=== PATIENT | male | born 1935 | race Caucasian/White ===

== ENCOUNTER 2017-06-11 08:29 | Inpatient (IN) | payer MEDICARE, BC, MEDICAID ==
[~2017-06-11] VITALS: Ht 195.6 cm; Wt 102.0 kg
--- NOTE | ~2017-06-11 | ECHO ---
Transthoracic Echocardiography Report (TTE) Demographics Patient Name MITRA GALLEGOS Date of Study 06/11/2017 Patient Number [id number] Visit Number [id number] Date of 1935 Room Number G6202 Gender Male Number Age 82 year(s) Referring Sharmaine Ford Banquet Server Carmen Kraus RVT, Physician Fredis CHAVEZ [facility] Hernan Estrada MD Physician Interpreting [facility] Chief Security Officer Physician Logan Mcneal MD Supervising Ordering [facility] MD/MLP Physician Logan Mcneal MD Nurse Stress [employer] Conclusions Summary Limited echo due to assess EF. The estimated left ventricular ejection fraction is 30-35%. Paradoxical septal motion due to the pacemaker lead . Severely dilated right ventricle. Normal right ventricular systolic performance. The right atrium is severely dilated. Device lead seen in the right atrium. Procedure Type of Study TTE procedure:Echo Limited w/o Contrast. 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 Additional Indications:Possible cath perforation Appropriate Use Criteria: 8 Patient Status: STAT Rhythm: Paced HR: 70 bpm Allergies - Other:(Hydrocodone, Lexapro, lortab). Findings Left Ventricle Paradoxical septal motion due to the pacemaker lead . Right Ventricle Severely dilated right ventricle. Normal right ventricular systolic performance. Right Atrium The right atrium is severely dilated. Device lead seen in the right atrium. Pericardial Effusion Epicardial fat pad noted. Contractility Score LV regional wall motion:(0-Non visualized 1-Normal 2-Hypokinesis 3-Akinesis 4-Dyskinesis 5-Aneurysm) Signature dtt: Estiven Schmid dtd: 06/11/17 0000 Physician Self Edit
--- NOTE | ~2017-06-11 | CATH ---
Cardiac Diagnostic + PCI Report Demographics Patient Name ROSY Jacome Gender Male Date of 1935 Age 82 year(s) Patient Number [id number] Date of Study 06/11/2017 Visit Number [id number] Room Number G6[address] [place] [id number] Ht 195.58 cm Wt 97.6 kg Referring Hernan Estrada MD Primary Physician Physician Performing Efstratiou Secondary Physician Physician Logan Mcneal MD Diagnostic Efstratiou Assisting Physician Physician Logan Mcneal MD Interventional Efstratiou Physician Audio Visual Coordinator Physician Logan Mcneal MD Findings and Conclusions Diagnostic Findings and Conclusion Severe stenosis in distal LAD and mid PDA Diagnostic Recommendations PCI of LAD Interventional Findings and Conclusion Successful PTCA to LAD but unable to stent due to torturousity of vessel. IABP inserted due to hypotension and in LVEF Interventional Recommendations Monitor in ICU in IABP 1:1. Upgrade pacer to BiV. Continue Plavix. Procedure Description The patient was brought to the diagnostic cardiac catheterization-EP laboratory in the fasting, non-sedated state. Informed consent was obtained in the written and verbal form after the risks and benefits were explained. The patient had no further questions and agreed to proceed. The planned puncture-incision site(s) were shaved and prepped with ChloraPrep and draped in the usual sterile manner. Conscious sedation, supplemental oxygen, and pain control medications were delivered by a registered nurse under physician guidance. Surface ECG rhythm, blood pressure measurement, and pulse oximetry were monitored throughout the procedure. Arterial access. The access site was infiltrated with lidocaine. The vessel was entered with the Seldinger technique. A sheath was advanced into the vessel and used for catheter placement. Venous access. The access site was infiltrated with 2% lidocaine. The vessel was entered with the Seldinger technique. A sheath was advanced into the vessel and used for catheter placement. Selective left coronary angiography. A catheter was advanced into the left coronary vessel ostium under Fluoroscopic guidance. Contrast was injected by hand. Images were obtained in multiple projections. Selective right coronary angiography. A catheter was advanced into the right coronary vessel ostium under fluoroscopic guidance. Contrast was injected by hand. Images were obtained in multiple projections. Left heart catheterization. A catheter was advanced across the aortic valve to the left ventricle under fluoroscopic guidance. Resting hemodynamics were obtained. Right heart catheterization. A Bent Darwin catheter was successfully advanced to the right atrium, right ventricle, pulmonary artery, and pulmonary artery wedge position under fluoroscopic guidance. Resting hemodynamics were obtained. Measurements included pressures, arterial and venous oxygen saturation samples, and cardiac output. The Bent was removed without difficulty. Arterial and Venous hemostasis was achieved. The patient was transferred to a regular nursing floor via cart accompanied by a nurse. The patient left the laboratory in stable condition. Diagnostic Cath Status: Elective Interventional Cath Status: Urgent Procedure Procedure Type Diagnostic procedure:Angiography:, Right and Left Heart Cath, Coronary Angios PCI procedure:PTCA:, LAD, Support:, IABP:, Insertion Indications: Shortness of breath w/exertion, CHF and CAD. The procedure was explained in detail to the patient. Risks, complications and alternative treatments were reviewed. Written consent was obtained. Medications Reviewed with Patient prior to Procedure. Angiographic Findings Dominance: Right Cardiac Arteries and Lesion Findings LMCA: Normal (0% Stenosis). LAD: Abnormal.The 1st Diag appears normal. Lesion on Dist LAD: 80% stenosis 12 mm length reduced to 10%. Pre procedure GISEL III flow was noted. Post Procedure GISEL III flow was present. The guidewire cross was successful.The lesion was diagnosed as a high risk lesion.Culprit lesion. Devices used - Whisper Wire .014 x 190. Number of passes: 1. - Emerge Balloon 2.0 x 15. 1 inflation(s) to a max pressure of: 14 mitch. - Promus Premier 2.25 x 12 Stent. 1 inflation(s) - Emerge Balloon 2.25 x 20. 1 inflation(s) to a max pressure of: 6 mitch. LCx: Lesion on Mid CX: 30% stenosis . Lesion on 1st Ob Elen% stenosis . RCA: There is a previous stent on Prox RCA Mid subsection showing wide patency. Lesion on R PDA: 80% stenosis . Lesion on Mid RCA: 30% stenosis . Coronary Tree Procedure Data Procedure Date Date: 06/11/2017Start: 11:17 AMEnd: 01:32 PM Entry Locations - Retrograde Percutaneous access was performed through the Right Radial artery (Primary location). A 6 Fr sheath was inserted. Hemostasis was successfully obtained using an R band. Closure Comments: mamadou closure. 10 ml of air in band. - Antegrade Percutaneous access was performed through the Right Femoral vein. A 6 Fr sheath was inserted. Hemostasis was successfully obtained using Suture. - Retrograde Percutaneous access was performed through the Right Femoral artery. A 6 Fr sheath was inserted. Hemostasis was successfully obtained using Suture. Procedure Medications Order and Administration + + +--------+---------+ !Time !Medication !Dosage !Route ! + + +--------+---------+ !06/11/2017 !Fentanyl !25 mcg !I.V. ! !11:06 AM ! ! ! ! + + +--------+---------+ !06/11/2017 !Fentanyl !25 mcg !I.V. ! !11:14 AM ! ! ! ! + + +--------+---------+ !06/11/2017 !PAE Radial Cocktail: Heparin 5000 units, ! !I.A. ! !11:19 AM !Nitroglycerin 200mcg, Verapamil 3 mg ! ! ! ! !(ACC_3) ! ! ! + + +--------+---------+ !06/11/2017 !Heparin (ACC_3) !3000 !I.V. ! !11:44 AM ! !units !bolus ! + + +--------+---------+ !06/11/2017 !0.9% NaCl !200 ml !I.V. ! !11:56 AM ! ! !bolus ! + + +--------+---------+ !06/11/2017 !Fentanyl !25 mcg !I.V. ! !11:57 AM ! ! ! ! + + +--------+---------+ 06/11/2017 !0.9% NaCl !200 ml !I.V. ! !12:04 PM ! ! !bolus ! + + +--------+---------+ 06/11/2017 !Eliseo-Synephrine (Phenylephrine) !100 mcg !I.V. ! !12:06 PM ! ! !bolus ! + + +--------+---------+ 06/11/2017 !Zofran !4 mg !I.V. ! !12:09 PM ! ! ! ! + + +--------+---------+ !06/11/2017 !Eliseo-Synephrine (Phenylephrine) !100 mcg !I.V. ! !12:28 PM ! ! !bolus ! + + +--------+---------+ !06/11/2017 !0.9% NaCl !200 ml !I.V. ! !12:30 PM ! ! !bolus ! + + +--------+---------+ !06/11/2017 !Nitroglycerin !200 mcg !I.C. ! !12:31 PM ! ! ! ! + + +--------+---------+ !06/11/2017 !Eliseo-Synephrine (Phenylephrine) !100 mcg !I.V. ! !12:32 PM ! ! !bolus ! + + +--------+---------+ !06/11/2017 !Eilseo-Synephrine (Phenylephrine) !100 mcg !I.V. ! !12:34 PM ! ! !bolus ! + + +--------+---------+ !06/11/2017 !Fentanyl !25 mcg !I.V. ! !01:14 PM ! ! ! ! + + +--------+---------+ !06/11/2017 !Compazine !5 mg ! ! !01:14 PM ! ! ! ! + + +--------+---------+ Devices Used - A6 Fr. Balloon Wedge Catheterwas used for:Right heart cath. - A6 Fr. BS JR 4 Diag. Catheterwas used for:Right coronary angiography. - A6 Fr. BS JL 3.5 Diag. Catheterwas used for:Left coronary angiography. - A6 Fr. BS Angled Pigtail Diag. Catheterwas used for:LV Pressures. - A6 Fr. XBLAD 3.5 Guide Catheterwas used for:LAD Intervention.Unable to cannulate the vessel. - A6 Fr. EBU 3.75 Guide Catheterwas used for:LAD Intervention.Unable to cannulate the vessel. - A6 Fr. JL3.5 Guide Catheterwas used for:LAD Intervention.Unable to cannulate the vessel. - A6 Fr. XBLAD 3.5 Guide Catheterwas used for:LAD Intervention. - A6 Fr. Guidliner. Contrast Material - Isovue 67171 ml Fluoroscopy Time: Diagnostic: 32:12 minutes. Total: 32:12 minutes. Fluoroscopy Dose: Diagnostic: 2115 mGy. Total: 2115 mGy. Estimated Blood Loss: 35 ml. IABP: IABP was Inserted after PCI has begun. Additional [facility] PCI Information PCI Indication:PCI for high risk Non-STEMI or unstable angina. Medical History Performed Procedures and Imaging Results - No [facility] stress or imaging studies were performed. Allergies - Other:(Hydrocodone, Lexapro, lortab). Risk Factors The patient risk factors include:prior PCI on 04/23/2016;hypertension, diet-treated diabetes mellitus, last creatinine: 1.2 mg/dl, creatinine clearance: 63.26 ml/min, dyslipidemia and former tobacco use. Admission Data Admission Date: 06/11/2017 Admission Time: 01:47 PM Admit Source: Other Insurance Payors: Medicare. Admission Medications + +------+------+ + + + + !Medication !Dosage!Times !Last !Last !Administered !Comments ! ! ! !Per !Delivery !Delivery ! ! ! ! ! !Day !Date !Time ! ! ! + +------+------+ + + + + !Beta ! ! ! ! !Yes ! ! !Janie ! ! ! ! ! ! ! !(any) ! ! ! ! ! ! ! + +------+------+ + + + + !Statin ! ! ! ! !Yes ! ! !(any) ! ! ! ! ! ! ! + +------+------+ + + + + Clinical Evaluation Leading to Procedure Diagnosed on 06/03/2017 04:00 PM. - The patient's CAD presentation was assessed as: Stable angina. - The patient's anginal syndrome during the past two weeks was assessed as: Class II according to the [place] Cardiovascular Society Classification System (CCS). Anti-anginal medications were prescribed during the past two weeks. The medication is: Beta Blockers. - The patient has been in a state of heart failure within the past two weeks. - The patient's heart failure status was assessed as NYHA Class III, with CHF symptoms of MCLAIN. Snapshots Hemodynamics Condition: Rest O2 Consumption: Estimated: 262.74Heart Rate: 70 bpm Oxygen Saturation +--------+-----+----+ +---+ + !Location!pCO2 !pO2 !% Saturation !Hgb!O2 Content ! +--------+-----+----+ +---+ + !RA ! ! !46.6 ! ! ! +--------+-----+----+ +---+ + !PA ! ! !49 ! ! ! +--------+-----+----+ +---+ + !FA ! ! !91.1 ! ! ! +--------+-----+----+ +---+ + Pressures (mmHg) +-----+ + !Site !Pressure ! +-----+ + !RA !03/11 (4) ! +-----+ + !RV !/ ,4 ! +-----+ + !PCW !04/12 (4) ! +-----+ + !PA !26/03 (12) ! +-----+ + !AO !106/63 (81) ! +-----+ + !AO !101/59 (71) ! +-----+ + !LV !104/3 ,5 ! +-----+ + !AO !79/48 (62) ! +-----+ + !AO !64/44 (54) ! +-----+ + !AO !97/60 (76) ! +-----+ + Cardiac Output +------+ + + + !Method!CO (l/min) !CI (l/min/m2) !SV (ml) ! +------+ + + + !Susan !2.64 !1.1 !37.59 ! +------+ + + + Valve Gradients and Areas + +--------+--------+--------+---------+ + + !Valve !Peak !Mean !Area !Index !Flow !Source ! + +--------+--------+--------+---------+ + + !Aortic !9 !9 !0.91 !0.39 !121.27 !Susan ! + +--------+--------+--------+---------+ + + !Aortic !9 !9 ! ! ! ! ! + +--------+--------+--------+---------+ + + Shunts Oxygen Values O2 Capacity 236.64 O2 Consumption 262.74 Flows (l/min) Qs 2.49 Vascular Resistance (dynes x sec x cm-5) + +-----+-----+----+----+---------+-------+ !CO method !TSVR !SVR !TPVR!PVR !TPVR/TSVR!PVR/SVR! + +-----+-----+----+----+---------+-------+ !Susan !28.85!27.45!4.59!2.95!0.16 !0.11 ! + +-----+-----+----+----+---------+-------+ !Qp or Qs !30.58!29.1 ! ! ! ! ! + +-----+-----+----+----+---------+-------+ Signatures dtt: Estiven Schmid dtd: 06/11/17 1117 Physician Self Edit
--- NOTE | ~2017-06-11 | ECHO ---
Transthoracic Echocardiography Report (TTE) Demographics Patient Name MITRA GALLEGOS Date of Study 06/12/2017 Patient Number [id number] Visit Number [id number] Date of 1935 Room Number G6202 Gender Male Number Age 82 year(s) Referring Sharmaine Ford Telephone Technician Gabriella Whelan, Physician Fredis CHAVEZ RT,RVT,RDCS Physician Interpreting [facility] Ancillary Physician A Supervising Ordering Sharmaine Ford MD/MLP Physician A Nurse Stress Interline Clerk Conclusions Contractility Score Summary Normal Left Ventricular contractility was noted. Summary The estimated left ventricular ejection fraction is 65%. Severe concentric left ventricular hypertrophy. Mild to moderately dilated right ventricle. Normal right ventricular systolic performance. The right atrium is severely dilated. IVC measures 3.5 cm with blunted response to sniffing Device lead seen in the right atrium. Moderate tricuspid regurgitation . Upper normal estimated PA pressure. Procedure Type of Study TTE procedure:2D Echocardiogram, M-Mode, Doppler , Color Doppler. Procedure Date Date: 06/12/2017 Start: 08:14 AM Study Location: Inpatient Portable Technical Quality: Adequate visualization Indications:Chest pain. Additional Indications:Post PTCA Appropriate Use Criteria: 9 Patient Status: Routine HR: 70 bpm BP: 98/54 mmHg Allergies - Other:(Hydrocodone, Lexapro, lortab). M-Mode/2D Measurements LV Diastolic Dimension: 3.59 cm LV Systolic Dimension: 2.39 cm LV Septum Diastolic: 1.43 cm LV Septum Systolic: 2.78 cm LV PW Diastolic: 1.51 cm LV PW Systolic: 2.33 cm Cardiac Output: 4.1 l/min AO Root Dimension: 4 cm RV Diastolic Dimension: 3.44 cm LA Dimension: 3.6 cm EF Estimated: 65 % MV EPSS: 0.2 cm LVOT: 2.3 cm RV Base: 5 cm LVOT VTI: 14.1 cm RV Mid: 5.3 cm LV Stroke volume: 58.55 ml TAPSE: 2 cm Doppler Measurements AV Peak Velocity: 0.81 m/s MV Peak E-Wave: 0.74 m/s AV Peak Gradient: 2.6 mmHg MV Peak A-Wave: 0.46 m/s AV Mean Gradient: 1 mmHg MV E/A Ratio: 1.59 LVOT Peak Velocity: 0.74 m/s MV P1/2t: 52 msec TR Gradient:18.32 mmHg PV Peak Velocity: 0.63 m/s Estimated RAP:10 mmHg PV Peak Gradient: 1.6 mmHg Estimated RVSP: 28 mmHg Estimated PASP: 28.32 mmHg E' Septal Velocity: 0.09 m/s A' Septal Velocity: 0.02 m/s MV E/E' Ratio: 8.5 Findings Left Ventricle Severe concentric left ventricular hypertrophy. Right Ventricle Mild to moderately dilated right ventricle. Normal right ventricular systolic performance. Left Atrium Normal left atrial size. Right Atrium The right atrium is severely dilated. IVC measures 3.5 cm with blunted response to sniffing Device lead seen in the right atrium. Mitral Valve Normal mitral valve structure and function. Aortic Valve The aortic valve is mildly sclerotic. Tricuspid Valve Moderate tricuspid regurgitation . Upper normal estimated PA pressure. Pulmonic Valve Normal pulmonic valve structure and function. Moderate pulmonic valve regurgitation. Pericardial Effusion No evidence of pericardial effusion. Miscellaneous Visualized portions of the aortic root and ascending aorta appear normal in size. Pleural Effusion No evidence of pleural effusion. Contractility Score LV regional wall motion:(0-Non visualized 1-Normal 2-Hypokinesis 3-Akinesis 4-Dyskinesis 5-Aneurysm) Signature dtt: Estiven Schmid dtd: 06/12/17 0814 Physician Self Edit
--- NOTE | ~2017-06-11 | DS ---
PATIENT'S NAME: MITRA GALLEGOS [facility] AGE: 82 Y [address] ROOM: [address] [address] LOCATION: GICU ADMIT DATE: 06/11/2017 Discharge Summary DISCHARGE DATE: 06/13/2017 FAMILY PHYSICIAN: Natalie Becerra MD ATTENDING PHYSICIAN: Liang White DIAGNOSES: 1. Coronary artery disease. 2. Transient cardiogenic shock. 3. Permanent pacemaker. 4. Chronic kidney disease stage 3. 5. Diastolic heart failure. 6. Unable to ambulate. HOSPITAL COURSE: This is a patient with progressive dyspnea on minimal exertion. In the past, he has been evaluated with a CT angiogram for thromboembolic disease, which was negative. He does have an elevated beta natriuretic peptide, so increasing doses of diuretics were tried without success. The patient had a previous stent to the proximal right coronary artery, and was known to have distal stenosis of the left anterior descending and the posterior descending arteries. It was suggested to alleviate his dyspnea and provided more information to perform the right and left heart catheterizations. The patient and his family consented. On the , he had right and left heart catheterizations. There was no significant pulmonary hypertension, although the right heart chambers were dilated. The previous right coronary artery stent was patent. He had 80% stenosis of the distal left anterior descending artery. During the revascularization procedure, the balloon crossed successfully; however, stents would not cross because of the tortuosity. In the process, the patient became unstable and hypotensive. He required the administration of Eliseo-Synephrine aliquots. At that point, the procedure was terminated. There was good flow in the distal left anterior descending artery at the completion of the case. Because the systolic pressures were between 80 and 90 an intra-aortic balloon pump was inserted, which stayed overnight. Immediate echocardiography showed dyskinesis of the septum. The patient required very small amounts of Levophed overnight. The next day, he had minimal elevation of his troponin. He was successfully weaned from the intra-aortic balloon pump, and a repeat echocardiogram showed complete recovery of his left ventricular systolic function. At some point, it was contemplated whether to upgrade his permanent pacemaker to a resynchronization device, but at this point, this will not be necessary. DISCHARGE FOLLOWUP: The patient will be discharged to his skilled nursing to be followed in my clinic in [place]. DISCHARGE MEDICATIONS: For his medications, please see the medication list. PATIENT'S NAME: MITRA GALLEGOS [facility] AGE: 82 Y [address] ROOM: G6202 [place], [place] [address] LOCATION: GICU ADMIT DATE: 06/11/2017 Discharge Summary DISCHARGE DATE: 06/13/2017 FAMILY PHYSICIAN: Natalie Becerra MD ATTENDING PHYSICIAN: Liang White LIANG WHITE MD PE/shoaibl /[id number] d: 06/13/17 0201 t: 06/16/17 1509, DISCHARGE SUMMARY
[~2017-06-11 08:29] MED LIST: ACETAMINOPHEN325 MG PO; ASCORBIC ACID500 MG PO; ASPIRIN LO-DOSE81 MG PO; BIOFREEZE89 ML TOP; COLACE100 MG PO; COREG12.5 MG PO; COUMADIN ** IA5 MG PO; COUMADIN **IA2.5 MG PO; DURAGESIC 25MC25 MCG TOP; FLEXERIL10 MG PO; LASIX80 MG PO; LOPRESSOR25 MG PO; MIRALAX17 GM PO; OSCAL + D500 MG PO; OXYGEN M-15 INH; PLAVIX75 MG PO; PROTONIX40 MG PO; THERA-VITE W/ B1 TAB PO; TUMS ULTRA400 MG PO; TYLENOL ARTHRI650 MG PO; ULTRAM50 MG PO; VITAMIN B-121000 MCG PO; VITAMIN B-650 MG PO; VITAMIN D31000 UNI1 PO; ZANTAC150 MG PO; ZOCOR20 MG PO; ZOFRAN4 MG PO
[2017-06-11 09:30] LABS: BASOPHIL # 0.1 K/uL (0.0-0.2); BASOPHIL % 0.5 %; EOSINOPHIL # 0.2 K/uL (0.0-0.5); EOSINOPHIL % 1.4 %; HEMATOCRIT 51.7 % (33.0-50.0); HEMOGLOBIN 17.4 g/dL (11.0-16.0); IMMATURE GRANULOCYTE % 0.4 %; LYMPHOCYTE # 1.5 K/uL (0.8-4.0); LYMPHOCYTE % 13.5 %; MCH 31.8 pg (27.0-34.0); MCHC 33.7 gm/dL (32.0-36.5); MCV 94.3 fl (83.0-98.0); MONOCYTE % 8.6 %; MPV 11.2 fl (9.4-12.4); NEUTROPHIL # (ANC) 8.3 K/uL (1.4-9.0); NEUTROPHIL % 75.6 %; NRBC % 0 /100WBC (0-0.00); PLATELET COUNT 215 K/uL (150-450); RBC 5.48 M/uL (3.50-5.50); RDW-CV 13.2 % (11.9-14.6)
[2017-06-11 09:45] LABS: ALBUMIN 3.7 gm/dL (3.5-5.0); ANION GAP 9.4 (10.0-19.0); CALCIUM 9.4 mg/dL (8.5-10.5); CREATININE 1.2 mg/dL (0.6-1.3); POTASSIUM 3.4 mMol/L (3.7-5.1); TOTAL BILIRUBIN 1.7 mg/dL (0.0-1.5); TOTAL PROTEIN 7.6 g/dL (6.0-8.4)
[2017-06-11 09:54] LABS: INR - (THERAPEUTIC) 1.37 (0.92-1.07); PROTIME 14.4 SECONDS (9.8-11.4); PTT 30 SECONDS (25-32)
[2017-06-12 04:16] LABS: BASOPHIL # 0.1 K/uL (0.0-0.2); BASOPHIL % 0.7 %; EOSINOPHIL # 0.1 K/uL (0.0-0.5); EOSINOPHIL % 1.1 %; HEMATOCRIT 41.6 % (33.0-50.0); HEMOGLOBIN 14.2 g/dL (11.0-16.0); IMMATURE GRANULOCYTE % 0.3 %; LYMPHOCYTE # 1.3 K/uL (0.8-4.0); LYMPHOCYTE % 12.2 %; MCH 32.7 pg (27.0-34.0); MCHC 34.1 gm/dL (32.0-36.5); MCV 95.9 fl (83.0-98.0); MONOCYTE # 1.2 K/uL (0.0-1.0); MPV 11.2 fl (9.4-12.4); NEUTROPHIL # (ANC) 7.6 K/uL (1.4-9.0); NEUTROPHIL % 73.7 %; NRBC % 0 /100WBC (0-0.00); RBC 4.34 M/uL (3.50-5.50); RDW-CV 13.5 % (11.9-14.6); WBC 10.3 K/uL (4.0-11.0)
[2017-06-12 04:25] LABS: PLATELET COUNT 159 K/uL (150-450)
[2017-06-12 04:45] LABS: ALBUMIN 2.9 gm/dL (3.5-5.0); ANION GAP 7.6 (10.0-19.0); CALCIUM 8.2 mg/dL (8.5-10.5); POTASSIUM 3.6 mMol/L (3.7-5.1); TOTAL BILIRUBIN 1.4 mg/dL (0.0-1.5); TOTAL PROTEIN 5.8 g/dL (6.0-8.4)
== END 2017-06-13 14:45 | DRG 270 ==
LOC: GPCU 08:29 → GCAT 08:29 → GPOC 09:00 → GPCU 11:55 → GICU 13:45 → GCAT 13:46 → GICU 13:47
PROVIDERS: ADMIT Internal Medicine Cardiovascular Disease
PROC: 02703ZZ Dilation of Coronary Artery, One Artery, Percutaneous Approach (ICD-10-PCS; principal; 2017-06-11)
PROC: 5A02210 Assistance with Cardiac Output using Balloon Pump, Continuous (ICD-10-PCS; principal; 2017-06-11)
PROC: B2111ZZ Fluoroscopy of Multiple Coronary Arteries using Low Osmolar Contrast (ICD-10-PCS; principal; 2017-06-11)
PROC: 4A023N8 Measurement of Cardiac Sampling and Pressure, Bilateral, Percutaneous Approach (ICD-10-PCS; principal; 2017-06-11)
DX: I25.119 Atherosclerotic heart disease of native coronary artery with unspecified angina pectoris (principal); R57.0 Cardiogenic shock; I13.0 Hypertensive heart and chronic kidney disease with heart failure and stage 1 through stage 4 chronic kidney disease, or unspecified chronic kidney disease; I50.30 Unspecified diastolic (congestive) heart failure; I95.9 Hypotension, unspecified; E11.22 Type 2 diabetes mellitus with diabetic chronic kidney disease; I48.2 Chronic atrial fibrillation; N18.3 Chronic kidney disease, stage 3 (moderate); E78.5 Hyperlipidemia, unspecified; Z79.01 Long term (current) use of anticoagulants; Z95.5 Presence of coronary angioplasty implant and graft; Z95.0 Presence of cardiac pacemaker; Z23 Encounter for immunization
CPT/HCPCS: C1725; C1769; C1874; C1887; C1894; G0008; J0780; J1644; J2001; J2250; J2370; J2405; J3010; J7030; J7060